=== PATIENT | male | born 1970 | race Two or more races ===

== ENCOUNTER 2023-07-09 15:40 | Emergency (ER) | payer SELFPAY ==
[2023-07-09 16:01] VITALS: BP 128/75; PULSE 56; RESP 16; TEMP 98.2; BMI 27.3
[2023-07-09 16:20] LABS: PH,URINE 5.5 (5.0-8.0); URINE APPEARANCE CLEAR; URINE BILIRUBIN NEGATIVE (NEGATIVE); URINE COLOR YELLOW; URINE GLUCOSE (UA) NEGATIVE (NEGATIVE); URINE KETONE NEGATIVE (NEGATIVE); URINE LEUK ESTERASE NEGATIVE (NEGATIVE); URINE NITRITE NEGATIVE (NEGATIVE); URINE PROTEIN NEGATIVE (NEGATIVE); URINE UROBILINOGEN 0.2 mg/dL (0.2-1.0)
[2023-07-09] MEDS ORDERED: diazePAM 5 MG TABLET PO ONE (16:21)
[2023-07-09] MEDS ORDERED: KETOROLAC TROMETHAMINE 30 MG/1 ML VIAL IM ONE (16:21)
[2023-07-09] MEDS ORDERED: diazePAM 5 MG TABLET ONE (16:24)
[2023-07-09] MEDS ORDERED: KETOROLAC TROMETHAMINE 30 MG/1 ML VIAL ONE (16:24)
[2023-07-09] MEDS ORDERED: LIDOCAINE 4% PATCH TP ONE (17:00)
[2023-07-10] MEDS ORDERED: LIDOCAINE PATCH REMOVAL MC ONE (05:00)
== END 2023-07-09 18:28 | disposition home or self-care (01) ==
LOC: JERFT 15:40 → JER 15:40 → JERFT 18:28
PROC: 3E0233Z Introduction of Anti-inflammatory into Muscle, Percutaneous Approach (ICD-10-PCS; principal; 2023-07-09)
DX: M54.50 Low back pain, unspecified (principal); M62.830 Muscle spasm of back
CPT/HCPCS: 72131-TC; 81003; 87086; 99284-25